=== PATIENT | male | born 1965 | race Caucasian/White ===

== ENCOUNTER 2021-06-02 11:20 | Emergency (ER) | payer OTHER ==
[~2021-06-02] VITALS: Ht 167.6 cm; Wt 128.8 kg
[2021-06-02] MEDS ORDERED: ONDANSETRON HCL/PF 4 MG/2 ML VIAL ONE (11:33)
[2021-06-02] MEDS ORDERED: MORPHINE SULFATE INJ 4 MG/ML DISP.SYRIN ONE (11:34)
[2021-06-02 11:44] LABS: BASOPHILS # (AUTO) 0.1 K/uL (0.0-0.2); BASOPHILS % (AUTO) 0.5 % (0.0-2.0); EOSINOPHILS % (AUTO) 1.7 % (0.0-6.0); HEMATOCRIT 34 % (39-51); HEMOGLOBIN 11.7 g/dL (13.5-17.5); LYMPHOCYTES # (AUTO) 3.2 K/uL (0.8-4.8); MEAN CORPUSCULAR HGB CONC 34 g/dl (31.0-36.0); MEAN CORPUSCULAR VOLUME 85 fL (80-96); MONOCYTES # (AUTO) 1.2 K/uL (0.1-1.30); MONOCYTES % (AUTO) 10.5 % (2.0-12.0); NEUTROPHILS # (AUTO) 6.4 K/uL (1.8-8.9); NEUTROPHILS % (AUTO) 58.3 % (43.0-81.0); PLATELET COUNT (AUTO) 186 K/uL (150-450); RED BLOOD CELL COUNT(AUTO) 4.07 MIL/uL (4.5-6.0)
--- NOTE | 2021-06-02 11:45 | NUR ---
[facility] FROM [facility] TO ER BED 12. AAOX4. NOT IN RESP DISTRESS. BROUGHT IN FOR L SIDED CHEST PAIN X 1 HR WATCH REPAIRER RADIATING TO LEFT ARM SHARP 5/10. PT WAS GIVEN A SPRAY OF NITRO AND A FULL DOSE OF ASIPRIN. EKG DONE AT BEDSIDE. WAS AT THE BEDSIDE FOR EVAL. ORDERS RECEIVED, NOTED AND CARRIED OUT. IV LINE ESTABLISHED ON R AC 18G, BLOOD DRAWN AND GIVEN TO LAB. PT ON MONITOR.
[2021-06-02 11:51] LABS: CALCIUM, SERUM 8.8 mg/dL (8.5-10.1); CARBON DIOXIDE 27 mmol/L (21-32); CHLORIDE 104 mmol/L (98-107); CREATININE 1.5 mg/dL (0.6-1.3); GLUCOSE 123 mg/dL (74-106); POTASSIUM 4.8 mmol/L (3.5-5.1); SODIUM SERUM 139 mmol/L (136-145); UREA NITROGEN, BLOOD 31 mg/dL (7-18)
[2021-06-02] MEDS: ONDANSETRON HCL/PF 4 MG/2 ML VIAL IV ONE (11:52)
[2021-06-02] MEDS: MORPHINE SULFATE INJ 10 MG/ML DISP.SYRIN IV ONE (11:52)
[2021-06-02] MEDS: ASPIRIN 325 MG TABLET PO ONE (11:53)
--- NOTE | 2021-06-02 11:53 | NUR ---
CANCELLED ASPIRIN BECAUSE PT ALREADY RECEIVED ASPIRIN 325MG RECREATION CENTER DIRECTOR BY THE PARAMEDICS
--- NOTE | 2021-06-02 15:20 | NUR ---
PT IS MEDICALLY CLEARED FOR DISCHARGE BACK TO [facility] FOR CONTINUATION OF HIM TREATMENT THERE. ARRANGING TRANSPORT BACK.
--- NOTE | 2021-06-02 15:22 | NUR ---
SO EUGENIO FARRELL RN ILLUMINATING ENGINEER, NAVEEN MADE AWARE THAT PT IS MEDICALLY CLEARED TO GO BACK. REPORT GIVEN WELL.
--- NOTE | 2021-06-02 15:31 | NUR ---
CALLED [facility] FOR TRANSPORT ETA OF [id number]
--- NOTE | 2021-06-02 18:06 | NUR ---
ORIGINAL TRANSPORT WAS SET UP WITH [facility]... CALLED NEW ETA IS 15 MINS.
--- NOTE | 2021-06-02 18:29 | NUR ---
ETA: 10-15 MINS [facility]
--- NOTE | 2021-06-02 19:14 | NUR ---
[facility] 44 AT BEDSIDE FOR PT TRANSPORT BACK TO [facility]. REPORT GIVEN TO EMT. PT IS IM STABLE CONDITION FOR TRANSPORT. NAD NOTED
[2021-06-02 19:15] VITALS: BP 111/64
== END 2021-06-02 19:16 | disposition home or self-care (01) ==
LOC: ER 11:23
DX: R07.89 Other chest pain (principal); I11.0 Hypertensive heart disease with heart failure; I50.9 Heart failure, unspecified; I25.2 Old myocardial infarction; E11.9 Type 2 diabetes mellitus without complications; Z88.8 Allergy status to other drugs, medicaments and biological substances
CPT/HCPCS: 36415; 71045; 80048; 83880; 84484 ×2; 85025; 93005; 96374; 96375; 99285; J2270; J2405

== ENCOUNTER 2021-06-07 13:00 | Inpatient (IN) | payer OTHER ==
[~2021-06-07] VITALS: Ht 167.6 cm; Wt 108.0 kg
--- NOTE | 2021-06-07 13:10 | NUR ---
BIBRA21. L SIDE CHEST PAIN 30MIN SUPERVISOR ORCHARD RADIATING TO L ARM SHARP 5/10 1 SPRAY NITRO AND ASPIRIN 324MG GIVEN. PATIENT A/OX4, BREATHING EVEN AND UNLABORED, NO SOB NOTED, NEEDS ATTENDED. KEPT COMFORTABLE.
[2021-06-07 13:33] LABS: BASOPHILS # (AUTO) 0.1 K/uL (0.0-0.2); BASOPHILS % (AUTO) 0.7 % (0.0-2.0); EOSINOPHILS % (AUTO) 1.9 % (0.0-6.0); HEMATOCRIT 36 % (39-51); HEMOGLOBIN 11.9 g/dL (13.5-17.5); LYMPHOCYTES # (AUTO) 2.6 K/uL (0.8-4.8); LYMPHOCYTES % (AUTO) 24.8 % (20.0-44.0); MEAN CORPUSCULAR HGB CONC 34 g/dl (31.0-36.0); MEAN CORPUSCULAR VOLUME 85 fL (80-96); MONOCYTES # (AUTO) 0.9 K/uL (0.1-1.30); MONOCYTES % (AUTO) 8.8 % (2.0-12.0); NEUTROPHILS # (AUTO) 6.7 K/uL (1.8-8.9); NEUTROPHILS % (AUTO) 63.8 % (43.0-81.0); PLATELET COUNT (AUTO) 184 K/uL (150-450); RED BLOOD CELL COUNT(AUTO) 4.21 MIL/uL (4.5-6.0); WHITE BLOOD COUNT (AUTO) 10.5 K/uL (4.3-11.0)
--- NOTE | 2021-06-07 13:39 | NUR ---
[facility] IS REQUESTING FOR A COVID TEST.
[2021-06-07 13:41] LABS: CALCIUM, SERUM 8.9 mg/dL (8.5-10.1); CARBON DIOXIDE 25 mmol/L (21-32); CHLORIDE 102 mmol/L (98-107); CREATININE 1.5 mg/dL (0.6-1.3); GLUCOSE 170 mg/dL (74-106); POTASSIUM 5.3 mmol/L (3.5-5.1); SODIUM SERUM 136 mmol/L (136-145); UREA NITROGEN, BLOOD 40 mg/dL (7-18)
[2021-06-07] MEDS ORDERED: LURA40TA PO (14:19)
[2021-06-07] MEDS ORDERED: TAMS-12 PO (14:19)
[2021-06-07] MEDS ORDERED: METF-442 PO (14:19)
[2021-06-07] MEDS ORDERED: FURO40TA5 PO (14:19)
[2021-06-07] MEDS ORDERED: METO25TA6 PO (14:19)
[2021-06-07] MEDS ORDERED: GABA-532 PO (14:19)
[2021-06-07] MEDS ORDERED: LISI10TA29 PO (14:19)
[2021-06-07] MEDS ORDERED: CYAN500T64 PO (14:19)
[2021-06-07] MEDS ORDERED: ATOR40TA PO (14:19)
[2021-06-07] MEDS ORDERED: SERT100T12 PO (14:19)
[2021-06-07] MEDS ORDERED: POTA8TAB3 PO (14:19)
[2021-06-07] MEDS ORDERED: NITROGLYCERIN PACKET 1 GM PACKET ONE (14:26)
[2021-06-07] MEDS ORDERED: ASPIRIN 81 MG TAB.CHEW PO ONE (14:30)
[2021-06-07] MEDS ORDERED: NITROGLYCERIN PACKET 1 GM PACKET TD ONE (14:30)
[2021-06-07] MEDS ORDERED: INSU100V3 SQ (14:56)
[2021-06-07] MEDS ORDERED: TEMA15CA PO (14:56)
[2021-06-07] MEDS ORDERED: LORA-259 PO (14:56)
--- NOTE | 2021-06-07 15:13 | NUR ---
COVID SWAB SENT. PATIENT RESTING, IN NO DISTRESS NOTED.
--- NOTE | 2021-06-07 15:46 | NUR ---
NURSING SUP GAVE 106. PLEASE GIVE 30 MINUTES PRIOR TO TRANSPORT.
--- NOTE | 2021-06-07 16:04 | NUR ---
REPORT GIVEN TO ILEANA HARRINGTON FOR KATRIN.
--- NOTE | 2021-06-07 16:50 | NUR ---
PATIENT TRANSFERRED TO ROOM 106 VIA ACLS PROTOCOL. IN NO DISTRES NOTED.
[2021-06-07] MEDS ORDERED: DEXTROSE 50%-WATER 50 ML DISP.SYRIN IV PRN (17:00)
[2021-06-07] MEDS ORDERED: MAG HYDROX/AL HYDROX/SIMETH 30 ML UDC PO PRN (17:00)
[2021-06-07] MEDS ORDERED: ACETAMINOPHEN 325 MG TABLET PO PRN (17:00)
[2021-06-07] MEDS: METOPROLOL TARTRATE 25 MG TABLET PO SCH (17:00)
[2021-06-07] MEDS ORDERED: IV NS 0.9% 1,000 ML IV PRN (17:00)
[2021-06-07] MEDS ORDERED: ONDANSETRON HCL/PF 4 MG/2 ML VIAL IVP PRN (17:00)
[2021-06-07] MEDS ORDERED: Z GUARD REMEDY 2 OZ OINT TP PRN (17:00)
[2021-06-07] MEDS ORDERED: ZOLPIDEM TARTRATE 5 MG TABLET PO PRN (17:00)
[2021-06-07] MEDS: ENOXAPARIN SODIUM 40 MG/0.4 ML DISP.SYRIN SQ SCH (17:35)
[2021-06-07] MEDS: BLOOD SUGAR DIAGNOSTIC 1 EACH STRIP IN SCH ×2 (17:36→22:59)
[2021-06-07] MEDS: GABAPENTIN 300 MG CAPSULE PO SCH (17:36)
[2021-06-07 17:54] LABS: THYROID STIMULATING HORMONE 1.979 uIU/mL (0.358-3.74)
[2021-06-07 18:00] VITALS: BP 104/70
[2021-06-07] MEDS: INSULIN REGULAR, HUMAN 100 UNIT/ML 3 ML VIAL SQ PRN (18:25)
--- NOTE | 2021-06-07 18:51 | NUR ---
RN NOTE Pt is A/O X3, no respiratory distress, no SOB, reports chest pain 2/10 has improved compared to initial. No abdominal distention, edema +2 present on feet non pitting. RAC IV site with ongoing hydration 100cc/hr. Right great toe detached nail with clean dressing. No s/sx of hyperglycemia/hypoglycemia. Insulin administered per sliding scale. Safety precautions implemented bed locked in lowest position, call light within reach.
[2021-06-07 20:00] VITALS: BP 112/65
--- NOTE | 2021-06-07 20:00 | NUR ---
LEARNING SUPPORT RESOURCE ROOM TEACHER NOTE PT IN BED AWAKE. A/O X 3, NO DISTRESS OR DISCOMFORT NOTED, DENIES PAIN. PT REMAIN IN ISOLATION FOR PCR PENDING FOR COVID. IVF NS 100 ML/HR INFUSING AT LAC # 20. NO S/S OF INFILTRATION NOTED. KEPT HIM DRY AND CLEAN. ALL NEEDS ATTENDED. CONTINUE TO MONITOR HIM.
[2021-06-07] MEDS: NITROGLYCERIN 30 GM TUBE TP SCH (21:00)
[2021-06-08] VITALS (7 sets, daily range): BP systolic 90–161; BP diastolic 37–84
[2021-06-08 06:25] LABS: BASOPHILS % (AUTO) 0.6 % (0.0-2.0); EOSINOPHILS % (AUTO) 2.3 % (0.0-6.0); HEMATOCRIT 34 % (39-51); HEMOGLOBIN 11.2 g/dL (13.5-17.5); LYMPHOCYTES # (AUTO) 2.9 K/uL (0.8-4.8); LYMPHOCYTES % (AUTO) 36.1 % (20.0-44.0); MEAN CORPUSCULAR HGB CONC 33 g/dl (31.0-36.0); MEAN CORPUSCULAR VOLUME 84 fL (80-96); MONOCYTES # (AUTO) 0.8 K/uL (0.1-1.30); MONOCYTES % (AUTO) 9.5 % (2.0-12.0); NEUTROPHILS # (AUTO) 4.2 K/uL (1.8-8.9); NEUTROPHILS % (AUTO) 51.5 % (43.0-81.0); PLATELET COUNT (AUTO) 150 K/uL (150-450); RED BLOOD CELL COUNT(AUTO) 3.97 MIL/uL (4.5-6.0); WHITE BLOOD COUNT (AUTO) 8.1 K/uL (4.3-11.0)
--- NOTE | 2021-06-08 06:28 | NUR ---
CAGE MAKER MACHINE NOTE PT IN BED ASLEEP, AROUSABLE. NO DISTRESS OR DISCOMFORT NOTED. NO S/S OF PAIN NOTED. IVF INFUSING WELL, LAC NO S/S OF INFILTRATION NOTED. ON TELE SB 56 SIDE RAILS UP X 2 AND CALL LIGHT WITHIN REACH. WILL ENDORSE TO DAY SHIFT NURSE FOR CONTINUE TO CARE.
[2021-06-08 07:11] LABS: CALCIUM, SERUM 8.7 mg/dL (8.5-10.1); CREATININE 1.3 mg/dL (0.6-1.3); MAGNESIUM 1.9 mg/dL (1.8-2.4); PHOSPHORUS 3.8 mg/dL (2.5-4.9); POTASSIUM 4.6 mmol/L (3.5-5.1)
[2021-06-08] MEDS: GABAPENTIN 300 MG CAPSULE PO SCH ×3 (07:47→16:02)
[2021-06-08] MEDS: BLOOD SUGAR DIAGNOSTIC 1 EACH STRIP IN SCH ×4 (08:04→21:00)
[2021-06-08] MEDS: INSULIN REGULAR, HUMAN 100 UNIT/ML 3 ML VIAL SQ PRN ×3 (08:06→21:02)
[2021-06-08] MEDS: NITROGLYCERIN 30 GM TUBE TP SCH (08:16)
--- NOTE | 2021-06-08 08:29 | NUR ---
RN NOTES RECEIVED PATIENT SUPINE ASLEEP IN BED, ALL SAFETY MEASURES IN PLACE WHEELS LOCK BED LOW, CALL LIGHT IN REACH, EASY TO AROUSE, B/P = 93/37 TAKEN 3 DIFFERENT TIMES REPORTED TO RN FISH STRAIGHTENER WE WILL MONITOR CLOSELY ON TELE NOW, HELD METROPOLOL B/P MEDICATION, IV SITE INTACT EASY TO FLUSH PATENT, NO C/O PAIN, NO DISTRESS AND NO LABORED BREATHING ON ROOM AIR AT THIS TIME 02 SAT BETWEEN 93-95%, WILL CONTINUE TO MONITOR CLOSELY AT THIS TIME.
[2021-06-08] MEDS: METOPROLOL TARTRATE 25 MG TABLET PO SCH (09:00)
[2021-06-08] MEDS ORDERED: LISINOPRIL (10MG) 10 MG TABLET PO SCH (09:00)
[2021-06-08] MEDS: TAMSULOSIN 0.4 MG CAP.SR.24H PO SCH (09:50)
[2021-06-08] MEDS: ASPIRIN 81 MG TAB.CHEW PO SCH (09:50)
[2021-06-08] MEDS: CYANOCOBALAMIN 500 MCG TABLET PO SCH (09:50)
--- NOTE | 2021-06-08 16:18 | NUR ---
RN NOTES PT C/O CHEST PAIN SHARP RADIATING DOWN LEFT ARM , RN HALL DIRECTOR ADVISED, MONITORING VS, OXYGEN LEVEL BETWEEN 94-98% ROOM AIR WILL PUT ON NC OXYGEN 2 LPM, VS = B/P -126/60, P = 57 , RR - 20, TEMP - 98.1 , NO LABORED BREATHING NO SOB NOTED, REPOSITIONED FOR COMFORT, PRN MEDICATION PROVIDED , WILL CONTINUE TO MONITOR CLOSELY, TELE MED READING IN NORMAL BASE LINE RANGE AT THIS TIME. Addendum: 06/08/21 at 1647 by MAEGAN DESOUZA RN MD NOTIFIED AND EKG PERFORMED SHOWS FIRST DEGREE AV BLOCK , SAME READING WHEN ADMITTED TO HOSPITAL, NO CHANGES AT THIS TIME, CONTINUE TO CLOSELY MONITOR , CALL LIGHT IN REACH, PT ROOM CLOSE TO NURSE STATION
--- NOTE | 2021-06-08 20:00 | NUR ---
HUMAN SERVICES PROGRAM SPECIALIST NOTE PATIENT IN BED AWAKE. A/O X 3, ON RA WITH O2 SAT 98% AT THIS TIME, NO SOB/ACUTE DISTRESS OR DISCO NOTED, DENIES CHEST PAIN, IV ACCESS LAC # 20, PATENT AND INTACT, IVF NS 100 ML/HR INFUSING WELL AND PATIENT TOLERATED WELL, NO S/S OF INFILTRATION NOTED, ALL NEEDS ATTENDED, REFUSING TO USE URINAL, NOTED PATIENT WITH SOB WHENEVER GETS UP AND USE RESTROOM, EDUCATED TO USE URINAL, EXPLAINED RISKS AND BENEFITS, STILL REFUSED, BED LOCKED AND IN LOWEST POSITION, CALL LIGHT W/I REACH, S/R OF BED UP X2, WILL CONT TO MONITOR CLOSELY.
[2021-06-08] MEDS: ENOXAPARIN SODIUM 40 MG/0.4 ML DISP.SYRIN SQ SCH (20:30)
[2021-06-08] MEDS: IV NS 0.9% 1,000 ML IV PRN (21:36)
[2021-06-09] VITALS: BP 122/60
[2021-06-09 04:00] VITALS: BP 148/82
[2021-06-09 06:10] LABS: BASOPHILS % (AUTO) 0.6 % (0.0-2.0); EOSINOPHILS % (AUTO) 2.6 % (0.0-6.0); HEMATOCRIT 34 % (39-51); HEMOGLOBIN 11.6 g/dL (13.5-17.5); LYMPHOCYTES # (AUTO) 2.4 K/uL (0.8-4.8); LYMPHOCYTES % (AUTO) 33.9 % (20.0-44.0); MEAN CORPUSCULAR HGB CONC 34 g/dl (31.0-36.0); MEAN CORPUSCULAR VOLUME 84 fL (80-96); MONOCYTES # (AUTO) 0.7 K/uL (0.1-1.30); MONOCYTES % (AUTO) 9.3 % (2.0-12.0); NEUTROPHILS # (AUTO) 3.9 K/uL (1.8-8.9); NEUTROPHILS % (AUTO) 53.6 % (43.0-81.0); PLATELET COUNT (AUTO) 140 K/uL (150-450); RED BLOOD CELL COUNT(AUTO) 4.05 MIL/uL (4.5-6.0); WHITE BLOOD COUNT (AUTO) 7.2 K/uL (4.3-11.0)
--- NOTE | 2021-06-09 06:24 | NUR ---
RN notes, no significant change in condition during the night, no c/o chest pain, remain at RA with optimal o2 sat level, cont hydration iv as ordered, will endorse continuity of care to oncoming nurse.
[2021-06-09 06:52] LABS: ALBUMIN 3.3 g/dL (3.4-5.0); BILIRUBIN,TOTAL 0.3 mg/dL (0.2-1.0); CALCIUM, SERUM 8.8 mg/dL (8.5-10.1); CREATININE 1.2 mg/dL (0.6-1.3); MAGNESIUM 2.1 mg/dL (1.8-2.4); PHOSPHORUS 3.6 mg/dL (2.5-4.9); TOTAL PROTEIN, SERUM 7.8 g/dL (6.4-8.2)
--- NOTE | 2021-06-09 07:30 | NUR ---
PT RECEIVED RESTING COMFORTABLY IN BED. NO S/S OR C/O PAIN OR DISTRESS NOTED. SIDE RAILS UP X2, CALL LIGHT LEFT WITHIN REACH. WILL CONTINUE PLAN OF CARE.
[2021-06-09 08:00] VITALS: BP 108/45
[2021-06-09] MEDS: TAMSULOSIN 0.4 MG CAP.SR.24H PO SCH (08:42)
[2021-06-09] MEDS: ASPIRIN 81 MG TAB.CHEW PO SCH (08:42)
[2021-06-09] MEDS: CYANOCOBALAMIN 500 MCG TABLET PO SCH (08:42)
[2021-06-09] MEDS: GABAPENTIN 300 MG CAPSULE PO SCH ×3 (08:42→17:05)
[2021-06-09] MEDS: INSULIN REGULAR, HUMAN 100 UNIT/ML 3 ML VIAL SQ PRN ×4 (08:58→22:31)
[2021-06-09] MEDS: BLOOD SUGAR DIAGNOSTIC 1 EACH STRIP IN SCH ×4 (08:59→22:07)
[2021-06-09] MEDS ORDERED: IOHEXOL-350 100 ML VIAL IV ONE (10:29)
[2021-06-09] MEDS ORDERED: METOPROLOL TARTRATE INJ 5 MG/5 ML AMPUL ONE (10:29)
[2021-06-09] MEDS ORDERED: NITROGLYCERIN 0.4 MG/TAB BOTTLE ONE (10:29)
[2021-06-09] MEDS ORDERED: CT SWABBABLE VALVE TRANS SET 1 EA INFUS.SET MC ONE (10:30)
[2021-06-09] MEDS ORDERED: IV NS 0.9% 250 ML IV ONE (10:30)
[2021-06-09 12:00] VITALS: BP 120/81
[2021-06-09] MEDS ORDERED: NITROGLYCERIN 0.4 MG/TAB BOTTLE SL ONE (15:30)
[2021-06-09] MEDS: METOPROLOL TARTRATE INJ 5 MG/5 ML AMPUL IVP PRN ×2 (15:35→15:40)
--- NOTE | 2021-06-09 15:49 | NUR ---
CTA PROCEDURE WELL TOLERATED BY THE PT. PT IS AAOX4, NOT IN RESPIRATORY DISTRESS, V/S STABLE, KEPT RESTED AND COMFORTABLE. REPORT GIVEN TO LEN CRESPO FOR KATRIN.
[2021-06-09 17:57] LABS: BILIRUBIN,URINE NEGATIVE (NEGATIVE); COLOR,URINE YELLOW (YELLOW); LEUKOCYTE ESTERASE ,URINE SMALL (NEGATIVE); NITRITE, URINE NEGATIVE (NEGATIVE); PROTEIN,URINE 30 mg/dl (NEGATIVE); UGLUCOSE NEGATIVE (NEGATIVE)
[2021-06-09 18:03] LABS: BACTERIA,URINE Few /HPF (None Seen); RBC,URINE 0-2 /HPF (0-2)
[2021-06-09 18:04] LABS: SQUAMOUS EPITHELIAL CELL,UR Moderate /HPF (None Seen)
--- NOTE | 2021-06-09 18:26 | NUR ---
CHANGE OF SHIFT REPORT PT RESTING COMFORTABLY IN BED. NO S/S OR C/O PAIN OR DISTRESS NOTED. SIDE RAILS UP X2, CALL LIGHT LEFT WITHIN REACH. PT KEPT CLEAN, DRY, AND COMFORTABLE. NO SIGNIFICANT CHANGES SINCE PREVIOUS SHIFT. WILL GIVE REPORT TO LANDY HARRINGTON.
[2021-06-09 20:00] VITALS: BP 109/55
--- NOTE | 2021-06-09 20:18 | NUR ---
RN NOTE PT RECEIVED IN BED. CURRENTLY ON ROOM AIR SHOWING NO S/S OF RESP DISTRESS/SOB. PT IS A&OX3. PT IS AMBULATORY WITH ASSISTANCE. CURRENTLY ON CARDIAC DIET. LEFT AC GAUGE 20 NOTED. IV LINE FLUSHED, PATENT, AND INTACT WITH NO INFILTRATION. ALL SAFETY MEASURES IMPLEMENTED. CALL LIGHT WITHIN REACH. BED ALARM ON. BED LOCKED AND IN LOWEST POSITION. WILL CONTINUE TO MONITOR THROUGHOUT THE SHIFT.
--- NOTE | 2021-06-09 21:12 | NUR ---
RN OPENING NOTE RECEIVED report FROM RN, JUN, PT AWAKE IN BED. A/OX3. PT STABLE ON RA, NO SOB OR RESPIRATORY DISTRESS NOTED. NO C/O PAIN AT THIS TIME. IV ACCESS IN L AC G#20. IV IS INTACT, PATENT AND FLUSHING WELL. SAFETY MEASURES MAINTAINED AT ALL TIMES. BED IN LOWEST LOCKED POSITION, HOB ELEVATED, SIDE RAILS UPX2. CALL LIGHT AND TABLE WITHIN REACH. WILL CONTINUE WITH PLAN OF CARE.
[2021-06-09] MEDS: ENOXAPARIN SODIUM 40 MG/0.4 ML DISP.SYRIN SQ SCH (21:56)
[2021-06-09] MEDS: IV NS 0.9% 1,000 ML IV PRN (22:03)
--- NOTE | 2021-06-10 00:38 | NUR ---
0038 patient with c/o chest sharp chest pain. bp checked 161/83, HR 59. patient sitting upright in bed. in no apparent distress. Dr. Mo was notified with orders made. Orders noted and carried out.
[2021-06-10] MEDS ORDERED: NITROGLYCERIN 0.4 MG/TAB BOTTLE SL PRN (01:00)
[2021-06-10] MEDS ORDERED: hydrALAZINE HCL IV 20 MG VIAL IV PRN (01:00)
--- NOTE | 2021-06-10 01:32 | NUR ---
BS 153. 2 UNITS OF INSULIN ADMINISTERED PER SLIDING SCALE
[2021-06-10 04:00] VITALS: BP 109/56
[2021-06-10] MEDS: BLOOD SUGAR DIAGNOSTIC 1 EACH STRIP IN SCH ×3 (06:18→17:47)
--- NOTE | 2021-06-10 06:30 | NUR ---
RN CLOSING NOTE PT IS AWAKE IN BED. A/OX4. PT IS STABLE ON RA. NO SOB OR RESPIRATORY DISTRESS NOTED. PT IS AMBULATORY WITH BRP. IV ACCESS IS INTACT, PATENT, AND FLUSHING WELL. NS @100ML/HR. ALL NEEDS HAVE BEEN MET. ALL CARE, NEEDS, MEDICATIONS, AND TREATMENT ADMINISTERED ANTICIPATED PER ORDER. PAIN MANAGEMENT ADMINISTERED PER ORDER. PT ENCOURAGED TO REPOSITION Q2H AND PRN. SAFETY, SEIZURE, AND ASPIRATION PRECAUTIONS MAINTAINED AT ALL TIMES. BED IN LOWEST LOCKED POSITION, HOB ELEVATED, SIDE RAILS UP X2. CALL LIGHT AND TABLE WITHIN REACH. WILL ENDORSE TO ONCOMING NURSE FOR KATRIN.
--- NOTE | 2021-06-10 07:39 | NUR ---
HIGH SPEED OPERATOR NOTE PATIENT IN BED , ALERT ORIENTED . NO SOB NOTED AT THIS TIME , ON TELE MONITOR SR , LT AC HL INTACT AND FLUSHED WELL , ON IVF ORDERED, BED IN LOWEST AND LOCKED POSITION, ABLE TO EAT BREAKFAST WELL SELF ALL NEEDS ATTENDED WILL CONT TO MONITOR
[2021-06-10] MEDS: CYANOCOBALAMIN 500 MCG TABLET PO SCH (08:37)
[2021-06-10] MEDS: ASPIRIN 81 MG TAB.CHEW PO SCH (08:37)
[2021-06-10] MEDS: TAMSULOSIN 0.4 MG CAP.SR.24H PO SCH (08:37)
[2021-06-10] MEDS: GABAPENTIN 300 MG CAPSULE PO SCH ×3 (08:38→16:18)
[2021-06-10 09:00] VITALS: BP 136/85
--- NOTE | 2021-06-10 10:30 | NUR ---
telephone order supervisor note all needs attended, no c\o pain or discomfort
--- NOTE | 2021-06-10 11:00 | NUR ---
MEDICAID PLAN COMPLIANCE DIRECTOR NOTE SEEN BY HARRIETT SIBLEY TOD\C TO [facility] , SPOKE WITH LINO CREPE SOLE WIRE BRUSHER WILL ARRANGE TRANSPORTATION
[2021-06-10 12:00] VITALS: BP 134/79
[2021-06-10] MEDS: INSULIN REGULAR, HUMAN 100 UNIT/ML 3 ML VIAL SQ PRN ×2 (12:35→17:43)
--- NOTE | 2021-06-10 14:43 | NUR ---
PILLOW FILLER NOTE PER CHIEF GREEN OFFICER AMBULANCE WILL BE HERE AT 4PM , DISCHARGE INSTRUCTION GIVEN ,INSTRUCTED HOW TO TAKE HOME MEDS AND POSSIBLE SIDE EFFECTS , INSTRUCTED TO F\U WITH PRIMARY CARE DOCTOR , BELONGING CHECKED , TELE REMOVED Addendum: 06/10/21 at 1456 by GAUTAM HARRELL RN NO FAMILY AVAILABLE TO CONTACT ABOUT TRANSFER TO [facility] , CALLED SUSHIL PREPARATORY TECHNICIAN FROM FACILITY UNABLE TO LEAVE MASSAGE, MASSAGE BOX IS FULL
[2021-06-10 16:00] VITALS: BP 121/62
--- NOTE | 2021-06-10 17:00 | NUR ---
SENIOR ANDROID SOFTWARE ENGINEER NOTE CALLED TO [facility] NOTIFIED THAT AMBULANCE NOT ARRIVED YET, STATED THAT WILL CALL AND CHECK IT ,WILL F\U
--- NOTE | 2021-06-10 17:54 | NUR ---
MATERIAL HANDLING SUPERVISOR NOTE AMBULANCE ARRIVED , REPORT GIVEN, TELE REMOVED, HL ON ARMS REMOVED, NO BLEEDING NOTED, ,PATIENT ABLE TO EAT DINNER , NOT IN DISTRESS, ALL NEEDS ATTENDED ,BELONGINGS SIGNED , LEFT HOSPITAL WITH STABLE CONDITION
== END 2021-06-10 17:53 | DRG 243 ==
LOC: ER 13:04 → TELE1 16:23 → MEDSG1 06-09 09:46 → TELE1 06-10 00:56
PROVIDERS: ADMIT Nurse Practitioner Family; ATTEND Nurse Practitioner Acute Care
DX: K21.9 Gastro-esophageal reflux disease without esophagitis (principal); N17.0 Acute kidney failure with tubular necrosis; E44.1 Mild protein-calorie malnutrition; I13.0 Hypertensive heart and chronic kidney disease with heart failure and stage 1 through stage 4 chronic kidney disease, or unspecified chronic kidney disease; I50.9 Heart failure, unspecified; D63.8 Anemia in other chronic diseases classified elsewhere; E11.22 Type 2 diabetes mellitus with diabetic chronic kidney disease; D64.9 Anemia, unspecified; E11.40 Type 2 diabetes mellitus with diabetic neuropathy, unspecified; E11.65 Type 2 diabetes mellitus with hyperglycemia; E66.01 Morbid (severe) obesity due to excess calories; E87.5 Hyperkalemia; N18.9 Chronic kidney disease, unspecified; Z20.822 Contact with and (suspected) exposure to COVID-19; E78.5 Hyperlipidemia, unspecified; I25.2 Old myocardial infarction; Z88.8 Allergy status to other drugs, medicaments and biological substances; Z79.4 Long term (current) use of insulin; Z79.899 Other long term (current) drug therapy; N40.0 Benign prostatic hyperplasia without lower urinary tract symptoms; F20.9 Schizophrenia, unspecified; G47.33 Obstructive sleep apnea (adult) (pediatric); Z68.42 Body mass index [BMI] 45.0-49.9, adult
CPT/HCPCS: 36415; 71045-TC; 75574; 76770-TC; 80048-TC; 80053-TC; 80061-TC; 81001; 82728-TC; 82962-TC; 83540-TC; 83735-TC; 84100-TC; 84439-TC; 84443-TC; 84484-TC; 85025-TC; 87086-TC; 93307-TC; A6403; C9803; G0378; J0360; J1650; J1815; J3490; J7030; J7050; Q9967; U0003